=== PATIENT | female | born 1985 | race Caucasian/White ===

== ENCOUNTER 2025-04-12 11:59 | Inpatient (IN) | payer MEDICAID ==
[~2025-04-12] VITALS: Ht 152.4 cm; Wt 63.0 kg
[2025-04-12 13:01] LABS: COVID AG,FIA SOURCE NASAL SWAB
[2025-04-12 13:04] LABS: PLATELET COUNT (AUTO) 249 K/uL (150-450); RED BLOOD CELL COUNT(AUTO) 4.35 MIL/uL (4.00-5.20); RED CELL DISTRIBUTION WIDTH 12.9 % (11.5-14.5); WHITE BLOOD COUNT (AUTO) 13.2 K/uL (4.5-11.0)
[2025-04-12 13:08] LABS: CALCIUM, TOTAL 9.6 mg/dL (8.8-10.5); GLUCOSE,RANDOM 141.0 mg/dL (70-110); SODIUM SERUM 143.0 mmol/L (136-145); UREA NITROGEN, BLOOD 44.0 mg/dL (7-18)
[2025-04-12 13:17] LABS: CREATININE 1.11 mg/dL (0.60-1.30); GLOMERULAR FILTR. RATE CALC 54.0 mL/min (>60)
[2025-04-12 13:27] LABS: SARS-COV2 (COVID) ANTIGEN,FIA Negative (Negative)
[2025-04-12 15:42] LABS: APPEARANCE,URINE CLEAR (CLEAR); GLUCOSE, URINE (UA) 150-200 mg/dL (NEGATIVE); LEUKOCYTE ESTERASE ,URINE NEGATIVE (NEGATIVE); NITRATE,URINE POSITIVE (NEGATIVE); OCCULT BLOOD,URINE TRACE (NEGATIVE); PH,URINE DRUG SCREEN 5.5 (5.0-8.0); SPECIFIC GRAVITIY, URINE 1.032 (1.003-1.030)
[2025-04-12 15:48] LABS: ALCOHOL, URINE DRUG SCREEN NEGATIVE (NEGATIVE); AMPHET/METH SCREEN,URINE POSITIVE (NEGATIVE); BARBITURATE SCREEN, URINE NEGATIVE (NEGATIVE); CANNABINOID SCREEN,URINE POSITIVE (NEGATIVE); COCAINE SCREEN,URINE NEGATIVE (NEGATIVE); METHADONE SCREEN, URINE NEGATIVE (NEGATIVE)
[2025-04-12 15:55] LABS: SQUAMOUS EPITHELIAL CELL,UR Few /LPF (None Seen)
[2025-04-12] MEDS: LIDOCAINE/PF 1% 2 ML VIAL IM ONE (16:36)
[2025-04-12] MEDS: CefTRIAXone SODIUM 1 GM/VIAL IM ONE (16:36)
[2025-04-12] MEDS: PERMETHRIN 5% 60 GM CREAM TP ONE (17:16)
[2025-04-12 22:44] VITALS: O2SAT 99
[2025-04-13 05:39] VITALS: RESP 20
[2025-04-13 08:26] VITALS: BP 134/87; PULSE 98; RESP 18; TEMP 97.3
[2025-04-13] MEDS ORDERED: OMEPRAZOLE 20 MG CAPSULE PO PRN (16:00)
[2025-04-13] MEDS ORDERED: BACITRACIN 28 GM OINTMENT TP PRN (16:00)
[2025-04-13] MEDS ORDERED: MAG HYDROX/ALUMINUM HYD/SIMETH ES 30 ML SUSPENSION UDCUP PO PRN (16:00)
[2025-04-13] MEDS ORDERED: DOCUSATE SODIUM 100 MG CAPSULE PO PRN (16:00)
[2025-04-13] MEDS ORDERED: PETROLATUM,WHITE 28 GM JELLY TP PRN (16:00)
[2025-04-13] MEDS ORDERED: ACETAMINOPHEN 325 MG TABLET PO PRN (16:00)
[2025-04-13] MEDS ORDERED: ONDANSETRON 4 MG TABLET PO PRN (16:00)
[2025-04-13] MEDS ORDERED: IBUPROFEN 600 MG TABLET PO PRN (16:00)
[2025-04-13] MEDS ORDERED: LOPERAMIDE HCL 2 MG CAPSULE PO PRN (16:00)
[2025-04-13] MEDS ORDERED: MAGNESIUM HYDROXIDE SUSPENSION 30 ML UDCUP PO PRN (16:00)
[2025-04-13] MEDS ORDERED: BENZOCAINE/MENTHOL [CEPACOL] LOZENGE PO PRN (16:00)
[2025-04-13] MEDS ORDERED: ALBUTEROL SULFATE HFA 90 MCG/PUFF 8 GM INHALER IH PRN (16:00)
[2025-04-13 20:23] VITALS: BP 175/142; PULSE 74; RESP 18; TEMP 97.3; O2SAT 96
[2025-04-14 08:08] LABS: PLATELET COUNT (AUTO) 188 K/uL (150-450); RED BLOOD CELL COUNT(AUTO) 4.08 MIL/uL (4.00-5.20); RED CELL DISTRIBUTION WIDTH 13.3 % (11.5-14.5); WHITE BLOOD COUNT (AUTO) 5.5 K/uL (4.5-11.0)
[2025-04-14 08:31] LABS: ASPARTATE AMINOTRANSFERASE 44 U/L (15-37); CALCIUM, TOTAL 9.2 mg/dL (8.8-10.5); CHOL/HDL RATIO 2.1 (3.9-5.7); CREATININE 0.56 mg/dL (0.60-1.30); GLOMERULAR FILTR. RATE CALC > 60 mL/min (>60); GLUCOSE,RANDOM 90 mg/dL (70-110); LDL CHOL (CALC.) 82 mg/dL (0-130); PHOSPHORUS 2.9 mg/dL (2.5-4.9); SODIUM SERUM 144 mmol/L (136-145); TOTAL PROTEIN, SERUM 6.7 g/dL (6.4-8.2); UREA NITROGEN, BLOOD 26 mg/dL (7-18)
[2025-04-14 09:10] VITALS: BP 108/72; PULSE 66; RESP 18; TEMP 98.4; O2SAT 98
[2025-04-14 20:00] VITALS: BP 110/70; PULSE 70; RESP 18; TEMP 98.5; O2SAT 100
[2025-04-15 09:48] VITALS: BP 100/70; PULSE 63; RESP 16; TEMP 97.9; O2SAT 98
[2025-04-15 20:59] VITALS: RESP 16
[2025-04-16 10:25] VITALS: BP 102/58; PULSE 75; RESP 18; TEMP 97.2; O2SAT 98
[2025-04-16 20:38] VITALS: BP 106/61; PULSE 58; RESP 18; TEMP 97.7; O2SAT 98
[2025-04-16] MEDS: ZOLPIDEM TARTRATE 10 MG TABLET PO PRN (23:44)
[2025-04-17 10:05] VITALS: BP 127/99; PULSE 71; RESP 18; TEMP 97.8; O2SAT 98
[2025-04-17 20:54] VITALS: BP 100/60; PULSE 60; RESP 18; TEMP 98.4; O2SAT 98
[2025-04-18 08:30] VITALS: RESP 17
[2025-04-18 16:11] VITALS: BP 91/57; PULSE 64; RESP 17; TEMP 97.8
[2025-04-18 21:14] VITALS: BP 103/58; PULSE 60; RESP 18; TEMP 97.1; O2SAT 98
[2025-04-19] MEDS: PERMETHRIN 5% 60 GM CREAM TP ONE (06:45)
[2025-04-19 10:15] VITALS: RESP 18
[2025-04-19 21:57] VITALS: BP 102/64; PULSE 79; RESP 19; TEMP 98.5; O2SAT 98
[2025-04-20 11:20] VITALS: BP 101/55; PULSE 72; RESP 18; TEMP 98.4; O2SAT 100
[2025-04-20 23:29] VITALS: BP 100/64; PULSE 74; RESP 18; TEMP 97.4; O2SAT 99
[2025-04-21 09:02] VITALS: BP 97/66; PULSE 76; RESP 17; TEMP 97.9; O2SAT 96
[2025-04-21] MEDS: TETRABENAZINE 12.5 MG TABLET PO SCH (16:12)
[2025-04-21 22:23] VITALS: BP 103/72; PULSE 87; RESP 18; TEMP 97.2; O2SAT 96
[2025-04-22 13:17] VITALS: BP 125/83; PULSE 86; RESP 18; TEMP 98; O2SAT 98
[2025-04-22 20:39] VITALS: BP 117/78; PULSE 88; RESP 18; TEMP 98.3; O2SAT 98
[2025-04-23 11:40] VITALS: BP 100/59; PULSE 67; RESP 18; TEMP 98.4; O2SAT 98
[2025-04-23 21:48] VITALS: PULSE 90; RESP 18; O2SAT 99
[2025-04-24 17:06] VITALS: BP 110/72; PULSE 16; RESP 16; TEMP 97.2; O2SAT 98
[2025-04-24 21:25] VITALS: BP 114/62; PULSE 18; RESP 18; TEMP 97.5; O2SAT 97
[2025-04-25 09:10] VITALS: BP 146/128; PULSE 18; RESP 18; TEMP 97.7; O2SAT 98
[2025-04-25 20:21] VITALS: BP 145/98; PULSE 81; RESP 18; TEMP 98.2; O2SAT 97
[2025-04-26 08:51] VITALS: BP 105/70; PULSE 68; RESP 18; TEMP 98.1; O2SAT 96
[2025-04-26 20:28] VITALS: BP 124/87; PULSE 73; RESP 18; TEMP 98.5; O2SAT 98
[2025-04-27 08:33] VITALS: BP 102/86; PULSE 91; RESP 18; TEMP 98; O2SAT 95
[2025-04-27 20:25] VITALS: BP 91/61; PULSE 68; RESP 18; TEMP 98.1; O2SAT 100
[2025-04-28 08:17] VITALS: BP 106/85; PULSE 86; RESP 17; TEMP 98.2; O2SAT 98
[2025-04-28 22:11] VITALS: BP 110/74; PULSE 84; RESP 18; TEMP 97.9; O2SAT 97
[2025-04-29 08:24] VITALS: BP 109/69; PULSE 80; RESP 17; TEMP 97.1; O2SAT 96
[2025-04-29 21:07] VITALS: BP 108/45; PULSE 68; RESP 18; TEMP 97.6; O2SAT 95
[2025-04-30 09:36] VITALS: BP 114/69; PULSE 77; RESP 18; TEMP 97.7; O2SAT 95
[2025-04-30 21:18] VITALS: BP 125/108; PULSE 82; RESP 18; TEMP 98.2; O2SAT 97
[2025-05-01 08:52] VITALS: BP 122/72; PULSE 60; RESP 18; TEMP 97.4; O2SAT 97
[2025-05-01 22:31] VITALS: BP 101/65; PULSE 59; RESP 18; TEMP 97.9; O2SAT 96
[2025-05-02 12:51] VITALS: BP 136/88; PULSE 88; RESP 18; TEMP 97.6; O2SAT 96
[2025-05-02 22:23] VITALS: PULSE 77; RESP 18; TEMP 97.1; O2SAT 97
[2025-05-03 13:09] VITALS: BP 114/90; PULSE 74; RESP 18; TEMP 97.6; O2SAT 99
[2025-05-03 21:53] VITALS: BP 132/82; PULSE 73; RESP 18; TEMP 98; O2SAT 73
[2025-05-04] VITALS (12 sets, daily range): BP systolic 93–128; BP diastolic 53–97; PULSE 61–87; RESP 16–18; TEMP 97.3–98.7; O2SAT 97–98
[2025-05-05 11:39] VITALS: BP 106/69; PULSE 89; RESP 18; TEMP 97.7; O2SAT 98
[2025-05-05 15:17] VITALS: BP 110/69; PULSE 81; RESP 18; TEMP 97.8; O2SAT 98
[2025-05-05 21:00] VITALS: BP 107/68; PULSE 79; RESP 19; TEMP 98.4; O2SAT 95
[2025-05-05 21:08] VITALS: BP 107/68; PULSE 79; RESP 16; TEMP 98.4; O2SAT 95
[2025-05-06 09:44] VITALS: BP 120/91; PULSE 86; RESP 18; TEMP 97.5; O2SAT 98
[2025-05-06 10:13] VITALS: BP 120/91; PULSE 86; RESP 18; TEMP 97.5; O2SAT 98
[2025-05-06 20:31] VITALS: BP 132/81; PULSE 92; RESP 18; TEMP 97.7; O2SAT 95
[2025-05-07 09:04] VITALS: BP 124/64; PULSE 78; RESP 18; TEMP 98.7; O2SAT 98
[2025-05-07 09:10] VITALS: BP 124/86; PULSE 78; RESP 18; TEMP 98.7; O2SAT 98
[2025-05-07 21:21] VITALS: BP 148/86; PULSE 84; RESP 18; TEMP 98.4; O2SAT 98
[2025-05-08 10:23] VITALS: BP 93/78; PULSE 79; RESP 17; TEMP 97.5; O2SAT 100
[2025-05-08 20:32] VITALS: BP 122/89; PULSE 70; RESP 18; TEMP 98.7; O2SAT 97
[2025-05-09 10:04] VITALS: BP 102/67; PULSE 95; RESP 18; TEMP 97.2; O2SAT 99
[2025-05-09 20:17] VITALS: BP 130/89; PULSE 70; RESP 18; TEMP 98.3; O2SAT 100
[2025-05-10 10:29] VITALS: BP 105/65; PULSE 60; RESP 18; TEMP 97.8; O2SAT 100
[2025-05-10 21:26] VITALS: BP 107/71; PULSE 71; RESP 20; TEMP 98.1; O2SAT 97
[2025-05-11 08:30] VITALS: BP 98/77; PULSE 81; RESP 18; TEMP 97.5; O2SAT 99
[2025-05-11 22:26] VITALS: BP 128/89; PULSE 74; RESP 18; TEMP 97.9; O2SAT 98
[2025-05-12] MEDS: ETHYL ALCOHOL 62% ANTISEPTIC NASAL SANITIZER 0.6 ML AMPUL NASAL SCH (08:14)
[2025-05-12 08:17] VITALS: BP 139/96; PULSE 84; RESP 18; TEMP 97.8; O2SAT 98
[2025-05-12 23:59] VITALS: BP 108/78; PULSE 95; RESP 18; TEMP 97.2; O2SAT 97
[2025-05-13 08:02] VITALS: BP 100/71; PULSE 86; RESP 18; TEMP 97.9; O2SAT 98
[2025-05-13 23:45] VITALS: BP 110/53; PULSE 75; RESP 18; TEMP 98.1; O2SAT 98
[2025-05-14 09:56] VITALS: BP 132/87; PULSE 71; RESP 19; TEMP 98.1; O2SAT 98
[2025-05-14 21:15] VITALS: BP 110/69; PULSE 68; RESP 20; TEMP 98; O2SAT 98
[2025-05-15 10:58] VITALS: BP 117/71; PULSE 83; RESP 18; TEMP 98.9; O2SAT 97
[2025-05-15 22:55] VITALS: BP 110/93; PULSE 94; RESP 16; TEMP 97.8; O2SAT 99
[2025-05-16 08:30] VITALS: BP 112/66; PULSE 67; RESP 18; TEMP 97.7; O2SAT 97
[2025-05-16 20:19] VITALS: BP 103/63; PULSE 70; RESP 18; TEMP 97.1; O2SAT 96
[2025-05-17 07:25] LABS: PLATELET COUNT (AUTO) 227 K/uL (150-450); RED BLOOD CELL COUNT(AUTO) 4.89 MIL/uL (4.00-5.20); RED CELL DISTRIBUTION WIDTH 14.2 % (11.5-14.5); WHITE BLOOD COUNT (AUTO) 6.2 K/uL (4.5-11.0)
[2025-05-17 08:07] LABS: CALCIUM, TOTAL 9.1 mg/dL (8.8-10.5); CHOL/HDL RATIO 3.4 (3.9-5.7); CREATININE 0.61 mg/dL (0.60-1.30); GLOMERULAR FILTR. RATE CALC > 60 mL/min (>60); GLUCOSE,RANDOM 89 mg/dL (70-110); LDL CHOL (CALC.) 193 mg/dL (0-130); PHOSPHORUS 4.1 mg/dL (2.5-4.9); SODIUM SERUM 138 mmol/L (136-145); TOTAL PROTEIN, SERUM 7.5 g/dL (6.4-8.2); UREA NITROGEN, BLOOD 19 mg/dL (7-18)
[2025-05-17 10:50] LABS: ASPARTATE AMINOTRANSFERASE 22 U/L (15-37)
[2025-05-17 20:00] VITALS: BP 139/52; PULSE 72; RESP 18; TEMP 98.6; O2SAT 97
[2025-05-18 12:02] VITALS: BP 105/72; PULSE 66; RESP 18; TEMP 97.6; O2SAT 98
[2025-05-18 22:28] VITALS: BP 110/66; PULSE 72; RESP 18; TEMP 98.2; O2SAT 97
[2025-05-19 11:41] VITALS: BP 112/86; PULSE 61; RESP 18; TEMP 97.6; O2SAT 99
[2025-05-19 20:00] VITALS: BP 101/85; PULSE 99; RESP 18; TEMP 97.8; O2SAT 97
[2025-05-20] MEDS: NICOTINE 21 MG/24 HOUR PATCH TD SCH (08:32)
[2025-05-20 10:26] VITALS: PULSE 77; RESP 18; TEMP 98; O2SAT 96
[2025-05-20 22:17] VITALS: BP 95/75; PULSE 76; RESP 20; TEMP 97.7; O2SAT 98
[2025-05-21 08:45] VITALS: BP 98/62; PULSE 78; RESP 18; TEMP 97.5; O2SAT 98
[2025-05-21 20:30] VITALS: BP 125/82; PULSE 76; RESP 17; TEMP 98.2; O2SAT 97
[2025-05-22 08:39] VITALS: BP 118/96; PULSE 69; RESP 18; TEMP 97.4; O2SAT 98
[2025-05-22 20:27] VITALS: BP 106/61; PULSE 68; RESP 18; TEMP 98.1; O2SAT 98
[2025-05-23 09:19] VITALS: BP 156/131; PULSE 82; RESP 18; TEMP 97.5; O2SAT 97
[2025-05-23 20:13] VITALS: BP 103/80; PULSE 77; RESP 18; TEMP 97.2; O2SAT 97
[2025-05-24 08:27] VITALS: BP 115/70; PULSE 62; RESP 17; TEMP 97.6; O2SAT 98
[2025-05-24 21:31] VITALS: BP 138/74; PULSE 72; RESP 18; TEMP 97; O2SAT 98
[2025-05-25 13:07] VITALS: BP 118/83; PULSE 74; RESP 18; TEMP 98.1; O2SAT 99
[2025-05-25 20:15] VITALS: BP 124/78; PULSE 68; RESP 18; TEMP 98.4; O2SAT 97
[2025-05-26 09:05] VITALS: BP 171/111; PULSE 60; RESP 17; TEMP 97.8; O2SAT 98
[2025-05-26 20:26] VITALS: BP 114/63; PULSE 83; RESP 18; TEMP 98.7; O2SAT 98
[2025-05-27 10:22] VITALS: BP 94/74; PULSE 64; RESP 17; TEMP 98; O2SAT 99
[2025-05-27 20:27] VITALS: BP 131/75; PULSE 81; RESP 18; TEMP 98.1; O2SAT 99
[2025-05-28 13:21] VITALS: BP 99/76; PULSE 75; RESP 18; TEMP 98.1; O2SAT 98
[2025-05-28 21:30] VITALS: BP 128/56; PULSE 83; RESP 18; TEMP 97.8; O2SAT 97
[2025-05-29 16:15] VITALS: BP 92/81; PULSE 63; RESP 18; TEMP 97.6; O2SAT 98
[2025-05-29 22:16] VITALS: BP 105/78; PULSE 78; RESP 18; TEMP 97.8; O2SAT 98
[2025-05-30 08:29] VITALS: BP 113/68; PULSE 85; RESP 18; TEMP 98; O2SAT 97
[2025-05-30 20:55] VITALS: BP 134/93; PULSE 80; RESP 19; TEMP 97.3; O2SAT 98
[2025-05-31 10:05] VITALS: BP 106/98; PULSE 78; RESP 16; TEMP 97.8; O2SAT 98
[2025-05-31 23:08] VITALS: BP 130/87; PULSE 84; RESP 18; TEMP 97.6; O2SAT 97
[2025-06-01 10:22] VITALS: BP 98/68; PULSE 65; RESP 18; TEMP 97.5; O2SAT 100
[2025-06-01 23:20] VITALS: BP 102/66; PULSE 72; RESP 18; TEMP 97.9; O2SAT 99
[2025-06-02 23:56] VITALS: BP 106/70; PULSE 68; RESP 18; TEMP 96.9; O2SAT 97
[2025-06-03 09:38] VITALS: BP 93/80; PULSE 76; RESP 18; TEMP 97.7; O2SAT 96
[2025-06-03 20:40] VITALS: BP 93/65; PULSE 65; RESP 18; TEMP 97.7; O2SAT 95
[2025-06-04 10:20] VITALS: BP 110/68; PULSE 64; RESP 16; TEMP 97.7; O2SAT 97
[2025-06-04 20:34] VITALS: BP 142/98; PULSE 78; RESP 18; TEMP 97; O2SAT 97
[2025-06-05 09:20] VITALS: BP 127/100; PULSE 66; RESP 18; TEMP 97.7; O2SAT 98
[2025-06-05 23:34] VITALS: BP 145/98; PULSE 89; RESP 18; TEMP 98.1; O2SAT 97
[2025-06-06 10:12] VITALS: BP 147/112; PULSE 71; RESP 18; TEMP 98.2; O2SAT 98
[2025-06-06 20:07] VITALS: BP 101/81; PULSE 80; RESP 18; TEMP 98.8; O2SAT 100
[2025-06-07 13:10] VITALS: BP 100/78; PULSE 76; RESP 18; TEMP 97.8; O2SAT 97
[2025-06-07 20:32] VITALS: BP 90/60; PULSE 81; RESP 18; TEMP 97.8; O2SAT 98
[2025-06-08 09:11] VITALS: BP 125/80; PULSE 68; RESP 16; TEMP 98; O2SAT 96
[2025-06-08 23:43] VITALS: BP 107/70; PULSE 66; RESP 18; TEMP 97.8; O2SAT 98
[2025-06-09 09:38] VITALS: BP 129/94; PULSE 79; RESP 16; TEMP 97.7; O2SAT 95
[2025-06-09 21:55] VITALS: BP 107/72; PULSE 98; RESP 18; TEMP 98.5; O2SAT 98
[2025-06-10 09:57] VITALS: BP 112/76; PULSE 60; RESP 18; TEMP 97.8; O2SAT 96
[2025-06-10 23:00] VITALS: BP 136/93; PULSE 88; RESP 18; TEMP 97.2; O2SAT 97
[2025-06-11 09:40] VITALS: BP 100/68; PULSE 72; RESP 18; TEMP 97.3; O2SAT 98
[2025-06-11 21:36] VITALS: BP 102/50; PULSE 73; RESP 18; TEMP 98.6; O2SAT 97
[2025-06-12 12:31] VITALS: BP 106/81; PULSE 97; RESP 18; TEMP 97.8; O2SAT 96
[2025-06-12 20:00] VITALS: BP 110/80; PULSE 80; RESP 18; TEMP 97.5; O2SAT 97
[2025-06-13 08:58] VITALS: BP 127/74; PULSE 78; RESP 16; TEMP 97.7; O2SAT 98
[2025-06-13 21:37] VITALS: BP 187/66; PULSE 67; RESP 19; TEMP 97.8; O2SAT 99
[2025-06-14 09:00] VITALS: BP 109/71; PULSE 71; RESP 18; TEMP 96.8; O2SAT 97
[2025-06-14 20:22] VITALS: BP 117/94; PULSE 74; RESP 18; TEMP 97.9; O2SAT 97
[2025-06-15 08:52] VITALS: BP 128/105; PULSE 62; RESP 18; TEMP 97.6; O2SAT 97
[2025-06-15 20:40] VITALS: BP 104/84; PULSE 73; RESP 18; TEMP 98.1; O2SAT 98
[2025-06-16 15:18] VITALS: BP 127/95; PULSE 64; RESP 17; TEMP 98.1; O2SAT 97
[2025-06-16 21:22] VITALS: BP 134/80; PULSE 78; RESP 18; TEMP 98.6; O2SAT 97
[2025-06-17 09:27] VITALS: BP 106/63; PULSE 73; RESP 18; TEMP 98.3; O2SAT 96
[2025-06-17 20:29] VITALS: BP 125/80; PULSE 67; RESP 18; TEMP 98.3; O2SAT 97
[2025-06-18 11:23] VITALS: BP 104/84; PULSE 81; RESP 18; TEMP 98.3; O2SAT 97
[2025-06-18 22:47] VITALS: BP 98/69; PULSE 69; RESP 18; TEMP 98.4; O2SAT 98
[2025-06-19 08:21] VITALS: BP 107/71; PULSE 83; RESP 20; TEMP 98; O2SAT 97
[2025-06-19 20:15] VITALS: BP 147/89; PULSE 71; RESP 19; TEMP 98.3; O2SAT 96
[2025-06-20 10:59] VITALS: BP 90/61; PULSE 67; RESP 18; TEMP 98.1; O2SAT 96
[2025-06-20 23:05] VITALS: BP 116/67; PULSE 69; RESP 18; TEMP 97.8; O2SAT 97
[2025-06-21 10:32] VITALS: BP 96/61; PULSE 61; RESP 18; TEMP 97.1; O2SAT 97
[2025-06-21 20:23] VITALS: BP 99/63; PULSE 68; RESP 18; TEMP 97.6; O2SAT 95
[2025-06-22 09:56] VITALS: BP 148/90; PULSE 72; RESP 18; TEMP 97.8; O2SAT 98
[2025-06-22 21:59] VITALS: BP 102/88; PULSE 78; RESP 18; TEMP 98.2; O2SAT 96
[2025-06-23 08:53] VITALS: BP 113/97; PULSE 61; RESP 18; TEMP 98.1; O2SAT 98
[2025-06-23 22:02] VITALS: RESP 18
[2025-06-24 08:55] VITALS: BP 145/110; PULSE 61; RESP 18; TEMP 97.9; O2SAT 96
[2025-06-24 20:16] VITALS: BP 96/66; PULSE 73; RESP 18; TEMP 97.9; O2SAT 98
[2025-06-25 09:56] VITALS: BP 130/97; PULSE 70; RESP 16; TEMP 97.7; O2SAT 97
[2025-06-25 21:28] VITALS: BP 130/86; PULSE 72; RESP 17; TEMP 98; O2SAT 98
[2025-06-26 10:51] VITALS: BP 112/98; PULSE 68; RESP 18; TEMP 97.7; O2SAT 97
[2025-06-26] MEDS: ROSUVASTATIN CALCIUM 10 MG TABLET PO SCH (20:09)
[2025-06-26 20:30] VITALS: BP 125/94; PULSE 81; RESP 18; TEMP 98; O2SAT 97
[2025-06-27 11:11] VITALS: BP 124/92; PULSE 75; RESP 18; TEMP 97.7; O2SAT 98
[2025-06-27 21:48] VITALS: BP 107/64; PULSE 10; RESP 19; TEMP 98.2; O2SAT 98
[2025-06-28 09:25] VITALS: BP 153/93; PULSE 68; RESP 18; TEMP 98.3; O2SAT 97
[2025-06-28 21:37] VITALS: BP 130/109; PULSE 71; RESP 18; TEMP 98; O2SAT 97
[2025-06-29 09:55] VITALS: BP 97/69; PULSE 70; RESP 18; TEMP 97.8; O2SAT 96
[2025-06-29 23:29] VITALS: BP 118/78; PULSE 85; RESP 18; O2SAT 96
[2025-06-30 08:12] VITALS: BP 124/86; PULSE 73; RESP 16; TEMP 97.9; O2SAT 96
[2025-06-30 20:46] VITALS: BP 119/93; PULSE 68; RESP 18; TEMP 97.2; O2SAT 98
[2025-07-01 08:54] VITALS: BP 146/91; PULSE 61; RESP 17; TEMP 98.4; O2SAT 96
[2025-07-01 21:08] VITALS: BP 122/71; PULSE 83; RESP 17; TEMP 97.9; O2SAT 97
[2025-07-02 08:10] VITALS: BP 125/72; PULSE 55; RESP 18; TEMP 97.6; O2SAT 96
[2025-07-02 20:21] VITALS: BP 153/97; PULSE 85; RESP 18; TEMP 97.7; O2SAT 96
[2025-07-03] MEDS: TETRABENAZINE 12.5 MG TABLET PO SCH (08:10)
[2025-07-03 10:45] VITALS: BP 107/83; PULSE 87; RESP 18; TEMP 98.2; O2SAT 99
[2025-07-03 20:22] VITALS: BP 111/86; PULSE 80; RESP 18; TEMP 98.6; O2SAT 100
[2025-07-04 08:46] VITALS: BP 97/73; PULSE 86; RESP 18; TEMP 97.6; O2SAT 94
[2025-07-04 20:23] VITALS: BP 106/82; PULSE 91; RESP 18; TEMP 98.1; O2SAT 97
[2025-07-05 10:24] VITALS: BP 92/47; PULSE 71; RESP 18; TEMP 98; O2SAT 97
[2025-07-05 22:27] VITALS: BP 103/81; PULSE 77; RESP 18; TEMP 98.2; O2SAT 98
[2025-07-06 11:15] VITALS: BP 90/56; PULSE 94; RESP 18; TEMP 98.5; O2SAT 98
[2025-07-06] MEDS: TUBERCULIN, PURIFIED PROTEIN DERIVATIVE 5 TU/0.1 ML SYRINGE ID ONE (20:45)
[2025-07-06 20:58] VITALS: BP 100/60; PULSE 89; RESP 18; TEMP 97.3; O2SAT 96
[2025-07-07 10:32] VITALS: BP 100/74; PULSE 74; RESP 16; TEMP 97.7; O2SAT 96
[2025-07-07 20:00] VITALS: BP 121/85; PULSE 78; RESP 18; TEMP 98.2; O2SAT 98
[2025-07-08 11:20] VITALS: BP 101/63; PULSE 68; RESP 17; TEMP 97.6; O2SAT 96
[2025-07-08 20:02] VITALS: BP 99/65; PULSE 78; RESP 18; TEMP 98.4; O2SAT 97
[2025-07-09 10:35] VITALS: BP 152/107; PULSE 69; RESP 18; TEMP 97.8; O2SAT 98
[2025-07-09 21:53] VITALS: BP 115/94; PULSE 68; RESP 18; TEMP 98.7; O2SAT 97
[2025-07-10 10:15] VITALS: BP 129/101; PULSE 67; RESP 18; TEMP 97.3; O2SAT 97
[2025-07-10 21:20] VITALS: BP 101/64; PULSE 82; RESP 18; TEMP 98.2; O2SAT 98
[2025-07-11 13:33] VITALS: BP 111/88; PULSE 106; RESP 18; TEMP 97.6; O2SAT 97
[2025-07-11 20:00] VITALS: BP 105/72; PULSE 76; RESP 18; TEMP 98.4; O2SAT 98
[2025-07-12 09:19] VITALS: BP 102/83; PULSE 100; RESP 18; TEMP 98.4; O2SAT 98
[2025-07-12 21:10] VITALS: BP 101/69; PULSE 70; RESP 18; TEMP 97.3; O2SAT 97
[2025-07-13 09:23] VITALS: BP 123/78; PULSE 73; RESP 18; TEMP 97.2; O2SAT 96
[2025-07-13 22:09] VITALS: BP 122/84; PULSE 75; RESP 18; TEMP 97.9; O2SAT 97
[2025-07-14 09:04] VITALS: BP 90/43; PULSE 106; RESP 18; TEMP 98.1; O2SAT 97
[2025-07-14 21:41] VITALS: BP 90/68; PULSE 69; RESP 18; TEMP 97.8; O2SAT 99
[2025-07-15 08:09] VITALS: BP 111/84; PULSE 60; RESP 18; TEMP 97.5; O2SAT 96
[2025-07-15 20:08] VITALS: BP 119/46; PULSE 78; RESP 19; TEMP 98.3; O2SAT 95
[2025-07-16 08:27] VITALS: BP 120/80; PULSE 99; RESP 18; TEMP 97.7; O2SAT 97
[2025-07-16 21:25] VITALS: BP 88/55; PULSE 62; RESP 18; TEMP 98; O2SAT 97
[2025-07-17 10:34] VITALS: BP 141/98; PULSE 100; RESP 18; TEMP 97.7
[2025-07-17 20:00] VITALS: BP 109/91; PULSE 67; RESP 18; TEMP 97.1; O2SAT 98
[2025-07-18 11:02] VITALS: BP 115/97; PULSE 78; RESP 17; TEMP 97.9; O2SAT 98
[2025-07-18 20:13] VITALS: BP 147/95; PULSE 85; RESP 18; TEMP 98.2; O2SAT 99
[2025-07-19 09:21] VITALS: BP 96/53; PULSE 50; RESP 18; TEMP 97.7; O2SAT 97
[2025-07-19 21:14] VITALS: BP 110/82; PULSE 77; RESP 18; TEMP 97.9; O2SAT 98
[2025-07-20 09:58] VITALS: BP 112/82; PULSE 69; RESP 18; TEMP 98.3; O2SAT 97
[2025-07-20 21:23] VITALS: BP 114/94; PULSE 82; RESP 18; TEMP 98; O2SAT 97
[2025-07-21 08:41] VITALS: BP 109/84; PULSE 76; RESP 18; O2SAT 96
[2025-07-21 20:19] VITALS: BP 121/97; PULSE 65; RESP 18; TEMP 98.2; O2SAT 97
[2025-07-22 09:57] VITALS: BP 113/78; PULSE 89; RESP 20; TEMP 97.5; O2SAT 95
[2025-07-22 22:45] VITALS: BP 101/64; PULSE 98; RESP 18; TEMP 98.1; O2SAT 98
[2025-07-23 14:12] VITALS: RESP 18
[2025-07-23 20:56] VITALS: BP 99/64; PULSE 76; RESP 20; O2SAT 99
[2025-07-24 08:30] VITALS: BP 109/71; PULSE 71; RESP 18; TEMP 98.2; O2SAT 98
[2025-07-24 09:11] LABS: PLATELET COUNT (AUTO) 156 K/uL (150-450); RED BLOOD CELL COUNT(AUTO) 4.83 MIL/uL (4.00-5.20); RED CELL DISTRIBUTION WIDTH 16.4 % (11.5-14.5); WHITE BLOOD COUNT (AUTO) 5.1 K/uL (4.5-11.0)
[2025-07-24 09:39] LABS: ASPARTATE AMINOTRANSFERASE 27 U/L (15-37); CALCIUM, TOTAL 8.9 mg/dL (8.8-10.5); CHOL/HDL RATIO 1.9 (3.9-5.7); CREATININE 0.55 mg/dL (0.60-1.30); GLOMERULAR FILTR. RATE CALC > 60 mL/min (>60); GLUCOSE,RANDOM 85 mg/dL (70-110); LDL CHOL (CALC.) 53 mg/dL (0-130); PHOSPHORUS 3.4 mg/dL (2.5-4.9); SODIUM SERUM 139 mmol/L (136-145); TOTAL PROTEIN, SERUM 6.8 g/dL (6.4-8.2); UREA NITROGEN, BLOOD 15 mg/dL (7-18)
[2025-07-24 21:18] VITALS: BP 128/86; PULSE 80; RESP 18; TEMP 97.9; O2SAT 97
[2025-07-25 09:18] VITALS: BP 105/66; PULSE 68; RESP 18; TEMP 97.3; O2SAT 96
[2025-07-25 21:48] VITALS: BP 124/100; PULSE 80; RESP 19; TEMP 97.5; O2SAT 100
[2025-07-26 10:43] VITALS: BP 137/82; PULSE 77; RESP 18; TEMP 97.7; O2SAT 98
[2025-07-26 22:46] VITALS: BP 106/69; PULSE 68; RESP 18; TEMP 97.9; O2SAT 99
[2025-07-27 09:47] VITALS: BP 106/55; PULSE 61; RESP 18; TEMP 97.4; O2SAT 96
[2025-07-27 21:43] VITALS: BP 139/83; PULSE 99; RESP 18; TEMP 98.2; O2SAT 95
[2025-07-28 08:38] VITALS: BP 133/99; PULSE 98; RESP 18; TEMP 97.8; O2SAT 96
[2025-07-28] MEDS ORDERED: FLUO-418 PO (12:44)
[2025-07-28] MEDS ORDERED: NICO-803 TD (12:45)
[2025-07-28] MEDS ORDERED: ROSU10TA98 PO (12:47)
[2025-07-28] MEDS ORDERED: TETR25TA PO (12:48)
== END 2025-07-28 18:26 | disposition home or self-care (01) | DRG 750 ==
LOC: EMS 12:02 → 3EI 04-13 03:44 → EMS 04-13 04:11 → 3EI 04-14 20:22
PROVIDERS: ADMIT Psychiatry & Neurology Psychiatry; ATTEND Psychiatry & Neurology Psychiatry
PROC: GZHZZZZ Group Psychotherapy (ICD-10-PCS; principal; 2025-04-14)
DX: F20.9 Schizophrenia, unspecified (principal); G10 Huntington's disease; G20.A1 Parkinson's disease without dyskinesia, without mention of fluctuations; N17.9 Acute kidney failure, unspecified; B86 Scabies; F15.10 Other stimulant abuse, uncomplicated; F41.9 Anxiety disorder, unspecified; N39.0 Urinary tract infection, site not specified; Z20.822 Contact with and (suspected) exposure to COVID-19; G25.0 Essential tremor; G47.00 Insomnia, unspecified; K59.00 Constipation, unspecified; F84.0 Autistic disorder; Z79.899 Other long term (current) drug therapy
CPT/HCPCS: 80048; 80053; 80061; 80307; 81001; 83036; 83735; 84100; 84443; 84703; 85025; 87077; 87086; 87186; 92610; 96372; 97110; 97112; 97116; 97163; 97167; 97530; 97535; 99285; G0480; J0696; J3490